=== PATIENT | male | born 1990 | race Two or more races ===

== ENCOUNTER 2017-08-28 18:55 | Emergency (ER) | payer OTHER ==
--- NOTE | 2017-08-28 20:06 | RAD ---
Indication: Left scrotal pain. Real-time sonography of the scrotum was performed. The right testis measures 4.8 x 2.0 x 3.1 cm. No intratesticular masses are noted. The epididymis measures 10 x 7 mm. No hydrocele is noted. Scattered AP testicular microlithiasis is noted. The right epididymis measures 10 x 7 mm. Normal flow is noted in the right testis. The left testis measures 4.1 x 2.3 x 3.2 cm. No intratesticular masses are noted. Normal flow is noted in the left testis. A small left hydrocele is noted. Small calcifications are noted in the left testis. The epididymis measures 9 x 9 mm. IMPRESSION: Calcifications in both testes. No intratesticular masses are noted. Normal flow is noted in the testes bilaterally. Small left hydrocele.
--- NOTE | 2017-08-28 20:15 | ED ---
Sterling Valdes Tecjoon scribisaias for Israel Vale MD on 08/28/17 at 2013 . GI/ HPI - HPI Summary HPI Summary: This patient is a 27 year old male presenting to [facility] accompanied by with a chief complaint of left testicle pain since yesterday last night approx. 0000. Patient states that he was having intercourse and his balls got crushed . The pain is rated 4/10 in severity. Symptoms aggravated by nothing. Symptoms alleviated by nothing. Patient denies hematuria, dysuria, testicular swelling. US was ordered from . Patient states he has a hx of left varicocele. - History of Current Complaint Chief Complaint: EDUrogenitalProblems Stated Complaint: PAIN IN TESTICLE Hx Obtained From: Patient Onset/Duration: Started Days Ago - 1, Still Present Current Severity: Moderate Pain Intensity: 4 Additional Locations for Males: Testicles - left Associated Signs and Symptoms: Positive: Negative - hematuria, dysuria, testicular swelling Aggravating Factor(s): Nothing Alleviating Factor(s): Nothing - Allergy/Home Medications Allergies/Adverse Reactions: Allergies Allergy/AdvReac Type Severity Reaction Status Date / Time Penicillins Allergy Unknown Verified 08/28/17 19:08 Reaction Details PMH/Surg Hx/FS Hx/Imm Hx Previously Healthy: Yes History: Reports: Other Problems/Disorders - left varicocele Opthamlomology History: Denies: Hx Legally Blind EENT History: Denies: Hx Deafness Infectious Disease History: No Infectious Disease History: Denies: Traveled Outside the [place] in Last 30 Days - Family History Known Family History: Negative: Hypertension - Social History Lives: With Family Alcohol Use: Daily Alcohol Amount: 1 -2 beers Substance Use Type: Reports: Marijuana Smoking Status (MU): Light Every Day Tobacco Smoker Review of Systems Negative: Fever Genitourinary: Negative - testicular swelling, Other - left testicular pain Negative: dysuria, hematuria All Other Systems Reviewed And Are Negative: Yes Physical Exam - Summary Physical Exam Summary: VITAL SIGNS: Reviewed. GENERAL: Patient is a well-developed and nourished male who is lying comfortable in the stretcher. Patient is not in any acute respiratory distress. HEAD AND FACE: No signs of trauma. No ecchymosis, hematomas or skull depressions. No sinus tenderness. EYES: PERRLA, EOMI x 2, No injected conjunctiva, no nystagmus. EARS: Hearing grossly intact. Ear canals and tympanic membranes are within normal limits. MOUTH: Oropharynx within normal limits. NECK: Supple, trachea is midline, no adenopathy, no JVD, no carotid bruit, no c- spine tenderness, neck with full ROM. CHEST: Symmetric, no tenderness at palpation LUNGS: Clear to auscultation bilaterally. No wheezing or crackles. CVS: Regular rate and rhythm, S1 and S2 present, no murmurs or gallops appreciated. ABDOMEN: Soft, non-tender. No signs of distention. No rebound no guarding, and no masses palpated. Bowel sounds are normal. EXTREMITIES: FROM in all major joints, no edema, no cyanosis or clubbing. NEURO: Alert and oriented x 3. No acute neurological deficits. Speech is normal and follows commands. : Testicles are not swollen or elevated. Testicles not tender. SKIN: Dry and warm Triage Information Reviewed: Yes Vital Signs On Initial Exam: Initial Vitals Temp Pulse Resp BP Pulse Ox 98.9 F 63 18 127/76 98 08/28/17 19:06 08/28/17 19:06 08/28/17 19:06 08/28/17 19:06 08/28/17 19:06 Vital Signs Reviewed: Yes Diagnostics - Vital Signs Vital Signs Temp Pulse Resp BP Pulse Ox 08/28/17 19:06 98.9 F 63 18 127/76 98 - Laboratory Lab Statement: Any lab studies that have been ordered have been reviewed, and results considered in the medical decision making process. - Additional Comments Diagnostic Additional Comments: US Testicular reveals, per radiologist, IMPRESSION: Calcifications in both testes. No intratesticular masses are noted. Normal flow is noted in the testes bilaterally. Small left hydrocele. ED physician has reviewed this radiology report. GIGU Course/Dx - Course Course Of Treatment: This patient is a 27 year old male presenting to [facility] accompanied by with a chief complaint of left testicle pain since yesterday last night approx. 0000. Patient states that he was having intercourse and his balls got crushed. US Testicular reveals, per radiologist , IMPRESSION: Calcifications in both testes. No intratesticular masses are noted. Normal flow is noted in the testes bilaterally. Small left hydrocele. ED physician has reviewed this radiology report. Patient will be discharged with left testicular pain and is advised to follow up with PCP in 3 days. The patient is agreeable with this plan. - Diagnoses Provider Diagnoses: Left testicular pain Discharge - Discharge Plan Condition: Stable Disposition: HOME Patient Education Materials: Testicle Pain (ED) Referrals: [facility] [Outside] - 3 Days Additional Instructions: Return to the ED for any new or worsening symptoms. The documentation as recorded by the Sterling crespo Tecjoon accurately reflects the service I personally performed and the decisions made by , Israel Vale MD.
[2017-08-28 20:26] VITALS: BP 123/71
== END 2017-08-28 20:25 | disposition home or self-care (01) ==
LOC: ED 18:55
DX: N50.812 Left testicular pain (principal)
CPT/HCPCS: 76870; 99282